=== PATIENT | female | born 1985 | race Caucasian/White ===

== ENCOUNTER 2019-03-18 19:14 | Observation (INO) ==
--- NOTE | 2019-03-18 19:36 | ERNOTE ---
Trauma/Assault HPI - Narrative Date of Service: 03/18/19 - General Stated Complaint: pain in side, headache Time Seen by Provider: 03/18/19 19:17 Source: patient Exam Limitations: no limitations - Immun/Allergies/Home Medications Immunizations: IMMUNIZATION HX Immunizations Up to Date Yes History of Influenza Vaccine No Hx Pneumococcal Vaccination No Allergies/Adverse Reactions: Allergies No Known Allergies Allergy (Verified 03/18/19 19:27) Home Medications: HOME MEDICATIONS cholecalciferol (vitamin D3) 5,000 unit capsule 5,000 unit PO QWEEK cap 11/30/17 [Last Taken Unknown] esomeprazole magnesium 40 mg capsule,delayed release 40 mg PO DAILY 11/30/17 [Last Taken Unknown] ferrous sulfate 325 mg (65 mg iron) tablet 650 mg PO .WEEKLY tab 11/30/17 [Last Taken Unknown] sucralfate 1 gram tablet 1 g PO Q6H 11/30/17 [Last Taken Unknown] sumatriptan 100 mg tablet 100 mg PO .COMPLEX PRN #7 tab 11/30/17 [Last Taken Unknown] Fluticasone Propionate [Flonase] 2 spray NS DAILY #1 inhaler 10/16/18 [Last Taken Unknown] carbamazepine ER 100 mg capsule,extended release [id number] 100 mg PO BID #60 cap 12/10/18 [Last Taken Unknown] topiramate 100 mg tablet 100 mg PO BID #60 tab 12/31/18 [Last Taken Unknown] ibuprofen 800 mg tablet 800 mg PO TID PRN #90 tab 02/25/19 [Last Taken Unknown] sumatriptan 50 mg tablet 50 mg PO ONCE PRN #14 tab 02/25/19 [Last Taken Unknown] hydrocodone 7.5 mg-acetaminophen 325 mg tablet 1 tab PO Q6H PRN #90 tab 03/18/19 [Last Taken Unknown] - Pain Pain Score #1 Pain Score: 4 - History of Present Illness Narrative: The patient is a 33 year old female who presents for fall which occurred at 1500. There are associated symptoms of left anterior lateral rib pain, left headache and left hand pain. The patient reports pain to left frontal head, left 5th digit and left lateral anterior chest wall. There are no alleviating factors. There are aggravating factors of activity. Previous treatments have included: none. The past medical history includes: anemia, anxiety, GERD, migraine and RLS. The social history is negative. The patient has had no ill contacts. Patient states she was working at [employer] when she was attempting to move large display made out of pallet wood when the display fell over landing on top of her. Patient states that she struck left head on cement floor but denies LOC. Patient states she had to have another working aid her to get out from under the pallet display. Patient was also wearing metal ring to left 5th digit which had to be cut to be removed. Patient denies LOC or vomiting since incident. Patient reports notifying HR of incident but did not notify of ER visit. Review of Systems - Review of Systems Constitutional: Present: no symptoms reported. Absent: recent illness, fever, fatigue EYE: Present: no symptoms reported. Absent: vision changes ENT: Present: no symptoms reported. Absent: ear pain, nasal drainage, sore throat Respiratory: Present: other - left rib pain. Absent: shortness of breath, cough Cardiology: Present: chest pain - left chest wall pain Gastrointestinal/Abdominal: Present: no symptoms reported. Absent: nausea, vomiting, diarrhea, abdominal pain Genitourinary: Present: no symptoms reported. Absent: dysuria Musculoskeletal: Present: neck pain. Absent: back pain Skin: Present: no symptoms reported. Absent: rash Neurological: Present: headache, numbness - left medial hand, 5th digit Endocrine: Present: no symptoms reported All Other Systems: All systems neg except as marked Medical History (Updated 02/21/19 @ 22:18 by Boaz Choi MD) Trigeminal neuralgia of right side of face (Acute) Allergic rhinitis (Acute) Migraine headache (Chronic) Allergic rhinitis Allergy-induced asthma Anemia Anxiety disorder Bilateral low back pain without sciatica Dysmenorrhea GERD (gastroesophageal reflux disease) Insomnia Migraine Myalgia and myositis RLS (restless legs syndrome) Refused influenza vaccine Onset Date: ~06/18/18 Tremor Surgical History: Surgical History (Updated 06/12/18 @ 22:57 by Loida Munguia RN) No pertinent past surgical history Family History: Family History (Last Reviewed 03/18/19 @ 19:31 by KELI Bonilla) Aunt Breast cancer Diabetes Brother Diabetes Father Hyperlipemia Diverticulitis Grandmother Cancer Diabetes Social History: (Last Reviewed 03/18/19 @ 19:31 by KELI Bonilla) Social History: Marital status: Single number of children: 3 Highest education level completed: high school graduate Service: No Tobacco: Smoking Status: Never smoker Alcohol: alcohol intake: current Alcohol type: hard liquor alcohol intake frequency: holiday/special occasion Substance Use: substance use type: does not use Dietary Habits: caffeine: Yes Physical Exam - Physical Exam General Appearance: Present: wd/wn, alert, no apparent distress Head Exam: Present: normal inspection, contusions - left forehead, tenderness - over left frontal Eye Exam: Normal inspection: bilateral, PERRL: bilateral, EOMI: bilateral Neck: Present: normal inspection, nontender, full range of motion Respiratory: Present: no respiratory distress, normal breath sounds, no accessory muscle use, lungs clear, chest tenderness - left anterior lateral ribs with palpation Cardiovascular/Chest: Present: regular rate, rhythm, no murmur Gastrointestinal/Abdominal: Present: normal bowel sounds, nontender, nondistended, soft, no organomegaly Back Exam: Present: no vertebral tenderness Extremity Exam: Present: normal range of motion, other - numbness to left 5th digit. Absent: bony tenderness Neurological Exam: Present: alert, oriented, normal mood/affect, other - decreased sensation to left 5th digit, normal hand sensation. Absent: motor weakness Skin Exam: Present: normal color, warm/dry - C-Collar: C-Collar:: Left in place Date:: 03/18/19 Time:: 20:27 Progress - Date and Time Seen: Date and Time: 03/18/19 20:27 Findings discussed with , consult to [facility]. 03/18/19 20:44 Case discussed with , will review with radiology at [facility] and return call. 03/18/19 21:08 Spoke with , after review with [facility] radiologist does not see any findings of bleed after review of scans sent to [facility]. 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 [facility] recommends monitoring of patient with repeat scans in am to exclude interval change. Discussed case with and will admit observation, requests patient be on telemetry through the night as well as neuro checks. Proceed with MRI of head and neck in am. - Vital Signs Patient's Vital Signs:: I have reviewed the patient's vital signs. Vital Signs: Vital Signs 03/18/19 19:19 Temperature 36.6 C Pulse Rate 87 Respiratory Rate 20 Blood Pressure 135/70 O2 Sat by Pulse Oximetry 97 - X-Ray X-Ray #1 X-Ray: chest Interpretation: Reviewed by me X-ray Comments: IMPRESSION: No focal acute cardiopulmonary finding. Electronically signed by Ivan Love M.D.. X-Ray #2 X-Ray: hand Interpretation: Reviewed by me X-ray Comments: IMPRESSION: No acute findings. Electronically signed by Ivan Love M.D.. X-Ray #3 X-Ray: ribs Interpretation: Reviewed by me X-ray Comments: IMPRESSION: 1. No definable rib fracture noted. 2. Additional comments are as above. Electronically signed by Ivan Love M.D.. - CT/Ultrasound CT/Ultrasound Narrative: IMPRESSION: 1. Questionable areas of potential trace amount of subarachnoid blood versus petechial parenchymal hemorrhage at the left frontal and temporal lobes as above. 2. No evidence for intracranial mass effect. 3. Additional comments as above. Above critical result communicated to KELI Bonilla via telephone on 03/18/2019 8:12 PM. Electronically signed by Ivan Love M.D.. IMPRESSION: 1. No evidence of acute cervical spine fracture. 2. C5-C6 degenerative disc disease, with disc osteophyte complex encroaching into the spinal canal and mildly effacing the spinal cord as discussed above. In the setting of acute trauma, if the patient has symptoms attributable to the cervical spine, consider central cord syndrome. 3. Incidental multinodular goiter, with a dominant left thyroid lobe nodule measuring up to 1.2 cm. Recommend routine thyroid ultrasound evaluation. Clinical correlation is still recommended. If there is a persistent clinical concern for injury, consider further evaluation by MRI. Ordering provider KELI Bonilla was informed regarding the above results by telephone on 03/18/2019 8:09 PM. Electronically signed by Ivan Love M.D.. - Progress/Reassessment Chief Complaint: Fall Departure Clinical Impression: Abnormal CT scan of head, Abnormal CT scan, cervical spine Headache, post-traumatic, acute Qualifiers: Intractability: not intractable Qualified Code(s): G44.319 - Acute post- traumatic headache, not intractable - Departure Disposition: Still a patient Condition: Stable Critical Care Time - Critical Care Critical Time Spent:: No
[2019-03-18] MEDS ORDERED: ACETAMINOPHEN 500 MG TABLET PO ONE (21:22)
[2019-03-19] MEDS ORDERED: KETOROLAC TROMETHAMINE 15 MG/ML VIAL IV PRN (02:25)
[2019-03-19] MEDS ORDERED: IBUPROFEN 800 MG TABLET PO PRN (08:35)
[2019-03-19] MEDS ORDERED: SUMAtriptan SUCCINATE 50 MG TABLET PO PRN (08:35)
[2019-03-19] MEDS ORDERED: ACETAMINOPHEN 500 MG TABLET PO PRN (08:35)
[2019-03-19] MEDS ORDERED: TOPIRAMATE 50 MG TABLET PO SCH (09:00)
[2019-03-19] MEDS ORDERED: SUCRALFATE 1 G TABLET PO SCH (09:00)
[2019-03-19] MEDS ORDERED: FAMOTIDINE 20 MG TABLET PO SCH (09:00)
[2019-03-19] MEDS ORDERED: carBAMazepine 100 MG TAB.CHEW PO SCH (09:00)
--- NOTE | 2019-03-19 09:06 | HP ---
Chief Complaint - Chief Complaint Date of Service: 03/19/19 Time of Service: 08:53 Chief Complaint: I fell and hit my head at work, now I have headache and neck pain History of Present Illness: 33-year-old female with past medical history of anxiety disorder, GERD, migraine headache, restless leg syndrome, anemia, was evaluated in our ER after she was brought in for head injury secondary to a fall that occurred in her workplace. Patient works at [employer] in [place] and while attempting to move a display rack it fell on top of her and knocked her down, patient reports falling onto her left side hitting her head and her left shoulder considerably hard. However, she denies any loss of consciousness or subsequent dizziness but given the nature of the injury and the headache that ensued she was concerned enough to come to our ER for evaluation. Medical History (Last Reviewed 03/18/19 @ 22:37 by Cheli Mcleod RN) Trigeminal neuralgia of right side of face (Acute) Allergic rhinitis (Acute) Migraine headache (Chronic) Allergic rhinitis Allergy-induced asthma Anemia Anxiety disorder Bilateral low back pain without sciatica Dysmenorrhea GERD (gastroesophageal reflux disease) Insomnia Migraine Myalgia and myositis RLS (restless legs syndrome) Refused influenza vaccine Onset Date: ~06/18/18 Tremor Surgical History: Surgical History (Last Reviewed 03/18/19 @ 22:37 by Cheli Mcleod RN) No pertinent past surgical history Family History: Family History (Last Reviewed 03/18/19 @ 22:37 by Cheli Mcleod RN) Aunt Diabetes Breast cancer Brother Diabetes Father Diverticulitis Hyperlipemia Grandmother Diabetes Cancer Social History: (Last Reviewed 03/18/19 @ 20:40 by Yana Doran RN) Social History: Marital status: Single number of children: 3 Highest education level completed: high school graduate Service: No Tobacco: Smoking Status: Never smoker Alcohol: alcohol intake: current Alcohol type: hard liquor alcohol intake frequency: holiday/special occasion Substance Use: substance use type: does not use Dietary Habits: caffeine: Yes Peds Patient Hx - Developmental: No Pertinent Hx Peds Patient Hx - Medical: No Pertinent Hx Peds Patient Hx - Cardiac/Respiratory: No Pertinent Hx Peds Patient Hx - Surgical: No Surgical History Patient History - Cancer: No Hx of Cancer Review Of Systems (GEN) - Review of Systems Generalized/Overall Review: Present: No Symptoms Reported EENTM: Present: No Symptoms Reported Respiratory: Present: No Symptoms Reported Cardiac: Present: No Symptoms Reported Abdominal: Present: No Symptoms Reported Genitourinary: Present: No Symptoms Reported Musculoskeletal: Present: Joint Pain - Right shoulder pain, Muscle Pain, Neck Pain Neurological: Present: Headache, Numbness - Numbness in left pinky finger Skin: Present: No Symptoms Reported Endocrine: Present: No Symptoms Reported Immunizations: IMMUNIZATION HX Immunizations Up to Date Yes History of Influenza Vaccine No Hx Pneumococcal Vaccination No Allergies/Adverse Reactions: Allergies Allergy/AdvReac Type Severity Reaction Status Date / Time No Known Allergies Allergy Verified 03/18/19 19:27 Home Medications: HOME MEDICATIONS cholecalciferol (vitamin D3) 5,000 unit capsule 5,000 unit PO QWEEK cap 11/30/17 [Last Taken Unknown] esomeprazole magnesium 40 mg capsule,delayed release 40 mg PO DAILY 11/30/17 [Last Taken Unknown] ferrous sulfate 325 mg (65 mg iron) tablet 650 mg PO .WEEKLY tab 11/30/17 [Last Taken Unknown] sucralfate 1 gram tablet 1 g PO Q6H 11/30/17 [Last Taken Unknown] Fluticasone Propionate [Flonase] 2 spray NS DAILY #1 inhaler 10/16/18 [Last Taken Unknown] carbamazepine 100 mg capsule,extended release [id number] 100 mg PO BID #60 cap 12/10/18 [Last Taken Unknown] topiramate 100 mg tablet 100 mg PO BID #60 tab 12/31/18 [Last Taken Unknown] ibuprofen 800 mg tablet 800 mg PO TID PRN #90 tab 02/25/19 [Last Taken Unknown] hydrocodone 7.5 mg-acetaminophen 325 mg tablet 1 tab PO Q6H PRN #90 tab 03/18/19 [Last Taken Unknown] SUMAtriptan SUCCINATE [Imitrex] 100 mg PO .COMPLEX PRN 03/19/19 [Last Taken Unknown] Exam - Exam Vital Signs: Vital Signs - Last Taken Temp 37.0 C 03/19/19 07:16 Pulse 67 03/19/19 07:49 Resp 12 03/19/19 07:16 BP 107/63 03/19/19 07:16 Pulse Ox 99 03/19/19 07:16 Constitutional: Present: Alert, Oriented x3, Cooperative, Well developed, Well nourished, No distress ENT Exam: Present: normal ENT inspection, hearing grossly normal, pharynx normal, TMs normal Eye Exam: bilateral eye: normal inspection, PERRL, EOMI Neck: Present: trachea midline, limited range of motion, stiff neck, other - Patient has c-collar in place Back Exam: Present: normal inspection, no CVA tenderness, no vertebral tenderness Breasts: Present: Exam deferred Respiratory: Present: chest non-tender, lungs clear, normal breath sounds, no respiratory distress, no accessory muscle use Cardiovascular/Chest: Present: normal peripheral pulses, regular rate, rhythm, no chest tenderness, no edema, no gallop, no JVD, no murmur, no rub Peripheral Pulses: carotid (R): 4+, carotid (L): 4+, femoral (R): 4+, femoral (L): 4+, dorsalis-pedis (R): 4+, dorsalis-pedis (L): 4+ Abdomen: Present: Normal bowel sounds, soft, nontender, nondistended, no rebound tenderness, no hepatospenomegaly, no masses /Rectal: Present: Exam deferred Extremity: Present: non-tender, normal inspection, no pedal edema, no calf tenderness, normal capillary refill, other - Decreased range of motion and pain of the right shoulder Skin Exam: Present: normal color, warm/dry, no cyanosis Lymphatic: Present: no adenopathy Neurologic: Present: blockmason II-XII nml as tested, alert, normal mood/affect, oriented x 3, other - Patient was noted to have numbness but no pain in her left pinky finger Appearance: Present: appropriate appearance, appropriate insight, neat, no memory impairment Eye contact: Present: cooperative, good eye contact, normal speech Thoughts: Present: normal thought pattern, no apparent hallucination Assessment/Plan - Narrative Narrative: Patient was evaluated and medical chart was reviewed and decision to admit for observation in our MedSurg unit for a rule out of subarachnoid bleeding or cervical neck injury was made. Initial imaging of the patient's head and cervical area did not demonstrate any obvious signs of intracranial bleeding, however our radiologist was unable to rule out 100% a subarachnoid bleed. ER physician consulted with the radiologist at [facility] and they denied seeing any evidence of ongoing intracranial bleeding, however recommendation for follow-up imaging of the head and cervical area be done this morning was made. Currently the patient is resting comfortably and has a c-collar in place, she reports ongoing headache from her left frontal area any radiating to her left occipital and left cervical area. She also complains of right shoulder pain and is tender in the area, therefore we will await brain and cervical MRI as well as a recently ordered right shoulder x-ray. All other x-rays are negative for any fractures. Patient maintains stable vitals and neuro checks have been negative up to this point, bedside neurological evaluation did not yield any obvious neurologic deficits the patient has 5 out of 5 strength in upper and lower extremities, the only abnormality was numbness in her left pinky which might be transient in nature given her injury. We will continue to monitor this closely and follow-up with additional imaging results. - Assessment/Plan (1) Work place accident Problem: Acute (2) Fall Problem: Acute (3) Head injury due to trauma Problem: Acute (4) Cervical pain (neck) Problem: Acute (5) Right shoulder injury Problem: Acute
[2019-03-19 14:51] VITALS: BP 102/63
--- NOTE | 2019-03-19 14:54 | DS ---
(1) Work place accident Problem: Acute (2) Fall Problem: Acute (3) Head injury due to trauma Problem: Acute (4) Cervical pain (neck) Problem: Acute (5) Right shoulder injury Problem: Acute Date of Discharge:: 03/19/19 Description of Stay: 33-year-old female admitted for head and neck injury secondary to fall that occurred in her workplace when the patient attempted to move a display. The display fell on her and caused her to hit her head and fall on her left side, it is also believed that during the injury she injured her right shoulder. Patient was evaluated at bedside this morning a thorough neurological examination was conducted and the only abnormality that we found was left pinky finger numbness, hopefully this is transient. However the patient had adequate strength in upper and lower extremity and there were no motor or sensory deficit besides the previously mentioned. Initial head CT was inconclusive for subarachnoid bleeding and all other x-rays were negative for any fractures including cervical imaging. Subsequent brain and cervical MRI done this morning were negative for any acute injuries including fractures hemorrhage, or nerve injuries. Patient also underwent x-ray of her right shoulder since she complained of pain and had decreased range of motion but that is also negative for any fractures. At this moment her only complaint is left-sided head pain precisely at the point of impact where she hit her head, therefore we are discharging her home with a prescription for pain medication. Patient was also instructed to follow-up with her PCP in the next 5 days to 1 week. Procedures Performed: none Discharge Location: Home Disposition: Home self-care Condition: Stable Face to Face Encounter completed per [facility] Guidelines: No Discharge Activity: Activity as tolerated Discharge Diet: General/regular food Referrals: Sumeet Khan MD [Primary Care Provider] - Additional Patient Instructions (free text): F/U with Dr Khan. Discuss results of CT scan and possible US of thyroid. Prescriptions (Any new or edited meds): HYDROcodone/ACETAMINOPHEN [Hydrocodone-Acetamin 5-325 mg] 1 each PO Q6H PRN #12 tablet PRN Reason: Pain Transmission Status: Received by [facility], [place], [place] Complete Home Medications List: Complete Home Medication List: cholecalciferol (vitamin D3) 5,000 unit capsule 5,000 unit PO QWEEK cap 11/30/17 esomeprazole magnesium 40 mg capsule,delayed release 40 mg PO DAILY 11/30/17 ferrous sulfate 325 mg (65 mg iron) tablet 650 mg PO .WEEKLY tab 11/30/17 sucralfate 1 gram tablet 1 g PO Q6H 11/30/17 Fluticasone Propionate [Flonase] 2 spray NS DAILY #1 inhaler 10/16/18 carbamazepine 100 mg capsule,extended release [id number] 100 mg PO BID #60 cap 12/10/18 topiramate 100 mg tablet 100 mg PO BID #60 tab 12/31/18 ibuprofen 800 mg tablet 800 mg PO TID PRN #90 tab 02/25/19 HYDROcodone/ACETAMINOPHEN [Hydrocodone-Acetamin 5-325 mg] 1 each PO Q6H PRN #12 tablet 03/19/19 SUMAtriptan SUCCINATE [Imitrex] 100 mg PO .COMPLEX PRN 03/19/19
[2019-03-22] MEDS ORDERED: FERROUS SULFATE 325 MG TABLET PO SCH (09:00)
[2019-03-22] MEDS ORDERED: CHOLECALCIFEROL 5,000 UNIT TABLET PO SCH (09:00)
== END 2019-03-19 15:30 | disposition home or self-care (01) ==
LOC: MS 19:14 → ER 19:14 → MS 22:25
PROVIDERS: ADMIT Family Medicine; ATTEND Family Medicine
CPT/HCPCS: 70450; 70551; 71020; 71046; 71100; 72125; 72141; 73030; 73130; 96374; 99284; G0378